=== PATIENT | female | born 1995 | race Caucasian/White ===

== ENCOUNTER 2018-09-29 16:16 | Outpatient (REF) | payer BC, SELFPAY ==
--- NOTE | 2018-09-29 15:50 | PAPFT_PTH ---
PATIENT: Donya López LOC: [facility] U#:[id number] AGE/SX: 23/F ROOM: RE09/29/[address]: Sharri Edwards : 1995 BED: DIS: 09/29/2018 SPEC #: [id number] RECD: 10/02/18 12:58 STATUS: MARIA DEL CARMEN REBeulah #: [id number] ANGELINA: 09/29/18 15:[address]: Sharri Edwards DEPT: [facility] Cytology RECD BY: Shaye Molina Tissues: 1 - CX/ENDOCX FOR PAP SMEARS Procedures: PAP THIN PREP/[facility] Screening Comments: [id number]
== END 2018-09-29 16:36 ==
LOC: NCHCN 16:16
PROVIDERS: PCP Nurse Practitioner Family; Visit Provider Nurse Practitioner Family
DX: Z00.00 Encounter for general adult medical examination without abnormal findings (principal); Z12.4 Encounter for screening for malignant neoplasm of cervix
CPT/HCPCS: 88142

== ENCOUNTER 2019-02-14 18:15 | Emergency (ER) | payer BC, SELFPAY ==
[2019-02-14 18:31] VITALS: BP 145/88; PULSE 117; RESP 20; TEMP 37.3; O2SAT 97
--- NOTE | 2019-02-14 18:41 | W.ED.GENAD ---
Discharge Plan Disposition Patient Disposition: HOME Condition: Stable Discharge Details Chief Complaint: GenMedical Clinical Impression: Periorbital cellulitis of left eye Primary Care Provider: Sharri Edwards ED Provider: Leeroy López Home Meds and New Rx's Prescriptions: New amoxicillin-pot clavulanate 875-125 mg tablet 1 tab PO BID 10 Days Qty: 20 RF: 0 Discharge Instructions Instructions: Cellulitis (ED) Additional Instructions: Continue the antibiotic ointment as previously prescribed. Take Augmentin as prescribed. Return if you develop pain with movement of the eye, persistent high fevers, or any other acute concerns. May use Tylenol and/or ibuprofen as needed for pain Medical Decision Making 23-year-old female presents with 3 days of left eye conjunctivitis which has been improving with the use of erythromycin ointment. She now has sinus pain and pressure with drainage and mild left preauricular lymphadenopathy. Consistent with a developing sinusitis/periorbital cellulitis. Do not appreciate that there are post septal findings and no evidence of retro-orbital cellulitis. We will place her on a course of Augmentin. She understands homecare as well as return precautions. She is stable at this time HPI General Mode of arrival: ambulatory. Date/Time Provider Initiated Documentation: 02/14/19 18:27. Limitations to Documentation: no limitations. History of Present Illness 23 year old F presents to the emergency department with the chief complaint of Left eye conjunctivitis and left sinus pressure, described as moderate, Quality is described as dull, and is localized to the face, eyes and left. Patient reports no radiation. Patient started experiencing this day(s) and it has been intermittent. No relieving factors improve symptom(s), No exacerbating factors reported . Patient notes fever/chills and other (No pain with movement of the eye. Left sinus pressure. Low-grade fever at home). Patient did receive the following treatments prior to arrival, none Related Data Home Medications Medication Instructions Recorded Confirmed amoxicillin-pot clavulanate 1 tab PO BID 10 Days #20 tab 02/14/19 Previous Rx's Medication Instructions Recorded amoxicillin-pot clavulanate 1 tab PO BID 10 Days #20 tab 02/14/19 Allergies Allergy/AdvReac Type Severity Reaction Status Date / Time No Known Allergies Allergy Unverified 02/14/19 18:34 General Stated Complaint: GenMedical DMITRY: 3 Review of Systems Review of Systems No pain with eye movement, no change to vision, no headache, no fall. 8 systems reviewed and otherwise negative [facility] Social History Smoking/Tobacco Use Status: Never Do you feel safe at home: Yes Exam Narrative Exam Narrative: GEN: awake, alert, oriented 3. Pleasant, well groomed, interactive. HEAD: Normocephalic, atraumatic ENT: Mucous membranes moist, oropharynx unremarkable, External ear exam unremarkable, TMs clear bilaterally EYES: PERRL, EOMI, left conjunctival injection, crusting of the lid. Left preauricular lymphadenopathy NECK: Full ROM, no IZABELLA, no menigismus CHEST/RESP: Nontender, clear to auscultation bilateral, no wheeze/rhonchi/rales CARDIOVASCULAR: RRR, no murmur, rub estelle. 2+ Rad pulse bilateral EXT: Full ROM, no edema, no rash Neuro: Grossly normal neurologic exam, conversant, interactive. Psych: Speech fluent, thoughts congruent, affect normal Course Vital Signs Temperature 37.3 C 02/14/19 18:31 Pulse 117 H 02/14/19 18:31 Respiratory Rate 20 02/14/19 18:31 Blood Pressure 145/88 H 02/14/19 18:31 Pulse Oximetry 97 02/14/19 18:31 Temperature 37.3 C 02/14/19 18:31 Temperature Source Skin 02/14/19 18:31 Pulse 117 H 02/14/19 18:31 Respiratory Rate 20 02/14/19 18:31 Respiratory Effort Non-Labored 02/14/19 18:36 Blood Pressure 145/88 H 02/14/19 18:31 Pulse Oximetry 97 02/14/19 18:31 Oxygen Delivery Method Room Air 02/14/19 18:31 Oxygen Flow Rate 0 02/14/19 18:31 Pain Level 3 02/14/19 18:31
--- NOTE | 2019-02-14 18:44 | ED.GENADUL_ITS ---
Discharge Plan Disposition Patient Disposition: HOME Condition: Stable Discharge Details Chief Complaint: GenMedical Clinical Impression: Periorbital cellulitis of left eye Primary Care Provider: Sharri Edwards ED Provider: Leeroy López Home Meds and New Rx's Prescriptions: New amoxicillin-pot clavulanate 875-125 mg tablet 1 tab PO BID 10 Days Qty: 20 RF: 0 Discharge Instructions Instructions: Cellulitis (ED) Additional Instructions: Continue the antibiotic ointment as previously prescribed. Take Augmentin as prescribed. Return if you develop pain with movement of the eye, persistent high fevers, or any other acute concerns. May use Tylenol and/or ibuprofen as needed for pain Medical Decision Making 23-year-old female presents with 3 days of left eye conjunctivitis which has been improving with the use of erythromycin ointment. She now has sinus pain and pressure with drainage and mild left preauricular lymphadenopathy. Consistent with a developing sinusitis/periorbital cellulitis. Do not appreciate that there are post septal findings and no evidence of retro-orbital cellulitis. We will place her on a course of Augmentin. She understands homecare as well as return precautions. She is stable at this time HPI General Mode of arrival: ambulatory . Date/Time Provider Initiated Documentation: 02/14/19 18:27 . Limitations to Documentation: no limitations . History of Present Illness 23 year old F presents to the emergency department with the chief complaint of Left eye conjunctivitis and left sinus pressure, described as moderate, Quality is described as dull, and is localized to the face, eyes and left. Patient reports no radiation. Patient started experiencing this day(s) and it has been intermittent. No relieving factors improve symptom(s), No exacerbating factors reported . Patient notes fever/chills and other (No pain with movement of the eye. Left sinus pressure. Low-grade fever at home). Patient did receive the following treatments prior to arrival, none Related Data Home Medications Medication Instructions Recorded Confirmed amoxicillin-pot clavulanate 1 tab PO BID 10 Days #20 tab 02/14/19 Previous Rx's Medication Instructions Recorded amoxicillin-pot clavulanate 1 tab PO BID 10 Days #20 tab 02/14/19 Allergies Allergy/AdvReac Type Severity Reaction Status Date / Time No Known Allergies Allergy Unverified 02/14/19 18:34 General Stated Complaint: GenMedical DMITRY: 3 Review of Systems Review of Systems No pain with eye movement, no change to vision, no headache, no fall. 8 systems reviewed and otherwise negative [facility] Social History Smoking/Tobacco Use Status: Never Do you feel safe at home: Yes Exam Narrative Exam Narrative: GEN: awake, alert, oriented 3. Pleasant, well groomed, interactive. HEAD: Normocephalic, atraumatic ENT: Mucous membranes moist, oropharynx unremarkable, External ear exam unremarkable, TMs clear bilaterally EYES: PERRL, EOMI, left conjunctival injection, crusting of the lid. Left preauricular lymphadenopathy NECK: Full ROM, no IZABELLA, no menigismus CHEST/RESP: Nontender, clear to auscultation bilateral, no wheeze/rhonchi/rales CARDIOVASCULAR: RRR, no murmur, rub estelle. 2+ Rad pulse bilateral EXT: Full ROM, no edema, no rash Neuro: Grossly normal neurologic exam, conversant, interactive. Psych: Speech fluent, thoughts congruent, affect normal Course Vital Signs Temperature 37.3 C 02/14/19 18:31 Pulse 117 H 02/14/19 18:31 Respiratory Rate 20 02/14/19 18:31 Blood Pressure 145/88 H 02/14/19 18:31 Pulse Oximetry 97 02/14/19 18:31 Temperature 37.3 C 02/14/19 18:31 Temperature Source Skin 02/14/19 18:31 Pulse 117 H 02/14/19 18:31 Respiratory Rate 20 02/14/19 18:31 Respiratory Effort Non-Labored 02/14/19 18:36 Blood Pressure 145/88 H 02/14/19 18:31 Pulse Oximetry 97 02/14/19 18:31 Oxygen Delivery Method Room Air 02/14/19 18:31 Oxygen Flow Rate 0 02/14/19 18:31 Pain Level 3 02/14/19 18:31
[2019-02-14] MEDS: Acetaminophen 500 MG TAB 1000 MG PO (18:46)
[2019-02-14] MEDS: Amoxicillin 875/Clav. 125 TAB PO (18:46)
== END 2019-02-14 18:53 | disposition home or self-care (01) ==
PROVIDERS: Emergency Provider Emergency Medicine; PCP Nurse Practitioner Family
DX: L03.213 Periorbital cellulitis (principal); J01.90 Acute sinusitis, unspecified
CPT/HCPCS: 99283

== ENCOUNTER 2020-07-29 16:40 | Outpatient (REF) | payer BC, SELFPAY | END 2020-07-29 17:00 | LOC: NCHCN 16:40 | PROVIDERS: PCP Nurse Practitioner Family; Visit Provider Nurse Practitioner Family | DX: R30.0 Dysuria (principal) | CPT/HCPCS: 87086 ==

== ENCOUNTER 2020-09-29 18:34 | Outpatient (REF) | payer BC, SELFPAY ==
[2020-09-29 18:32] LABS: Hemoglobin A1C 5.5 % (<5.7)
[2020-09-29 18:35] LABS: Calculated LDL 126 mg/dL (<100); Cholesterol 188 mg/dL (<200); HDL Cholesterol 40 mg/dL (40-60); TSH (W/Ref FT4) 3.31 uIU/mL (0.36-3.74); Triglyceride 112 mg/dL (<150)
[2020-09-30 17:54] LABS: Prolactin 9.1 ng/mL (See Table)
[2020-10-03 16:34] LABS: Dehydroepiandrosterone (DHEA) 4.4 ng/mL (<13)
== END 2020-09-29 18:54 ==
LOC: NCHCN 18:34
PROVIDERS: PCP Nurse Practitioner Family; Visit Provider Nurse Practitioner Family
DX: N91.1 Secondary amenorrhea (principal)
CPT/HCPCS: 80061; 82626; 83036; 84146; 84443

== ENCOUNTER 2021-09-25 03:46 | Outpatient (CLI) | payer BC, SELFPAY ==
[2021-09-27 17:17] LABS: Estradiol 47 pg/mL (See Note)
[2021-09-28 09:42] LABS: FSH 8.9 mIU/mL (See Note); LH 10.2 mIU/mL (See Note)
[2021-09-29 14:03] LABS: Antimullerian Hormone 2.8 ng/mL (0.89-9.9)
== END 2021-09-25 03:47 | disposition home or self-care (01) ==
LOC: LBO 03:46
PROVIDERS: PCP Nurse Practitioner Family; Visit Provider Obstetrics & Gynecology Gynecology
DX: N91.1 Secondary amenorrhea (principal); N92.6 Irregular menstruation, unspecified
CPT/HCPCS: 36415; 82670; 83001; 83002; 83520

== ENCOUNTER 2021-09-30 03:12 | Outpatient (CLI) | payer BC, SELFPAY ==
[2021-10-01 18:06] LABS: Estradiol 85 pg/mL (See Note)
[2021-10-01 18:47] LABS: LH 9.6 mIU/mL (See Note)
[2021-10-01 18:50] LABS: FSH 6.5 mIU/mL (See Note)
== END 2021-09-30 03:13 | disposition home or self-care (01) ==
LOC: LBO 03:12
PROVIDERS: PCP Nurse Practitioner Family; Visit Provider Obstetrics & Gynecology Gynecology
DX: N91.1 Secondary amenorrhea (principal); N92.6 Irregular menstruation, unspecified
CPT/HCPCS: 36415; 82670; 83001; 83002; 83520

== ENCOUNTER 2021-11-17 17:16 | Outpatient (REF) | payer BC, SELFPAY ==
--- NOTE | 2021-11-17 14:45 | PAPFT_PTH ---
PATIENT: Donya López LOC: [facility] U#:[id number] AGE/SX: 26/F ROOM: RE11/17/[address]: Sharri Edwards : 1995 BED: DIS: 11/17/2021 SPEC #: [id number] RECD: 11/17/21 18:10 STATUS: MARIA DEL CARMEN REQ #: [id number] ANGELINA: 11/17/21 14:[address]: Sharri Edwards DEPT: [facility] Cytology RECD BY: Shaye Molina Tissues: 1 - CX/ENDOCX FOR PAP SMEARS Procedures: PAP THIN PREP/[facility] Screening Comments: [id number]
== END 2021-11-17 17:17 | disposition home or self-care (01) ==
LOC: NCHCN 17:16
PROVIDERS: PCP Nurse Practitioner Family; Visit Provider Nurse Practitioner Family
DX: Z12.4 Encounter for screening for malignant neoplasm of cervix (principal)
CPT/HCPCS: 88142

== ENCOUNTER 2023-02-11 08:11 | Outpatient (CLI) | payer BC, SELFPAY ==
--- NOTE | 2023-02-11 16:03 | DI.RAD_ITS ---
Exam(s) XR KNEE RT 3V AP,LAT,MEETA EXAM: XR KNEE RT 3V AP,LAT,MEETA CLINICAL HISTORY: RT KNEE EFFUSION,M25.461. TECHNIQUE: 2D digital imaging was performed. COMPARISON: No exams were available for comparison FINDINGS: 3 views No evidence of acute fracture nor obvious joint effusion. Bone density normal. No osseous lesions. No degenerative changes. No osteochondral defects seen. IMPRESSION: No acute osseous findings. DATA REPOSITORY: RADIATION DOSE DELIVERED:
== END 2023-02-11 08:31 ==
PROVIDERS: PCP Nurse Practitioner Family; Visit Provider Specialist/Technologist Athletic Trainer
DX: M25.461 Effusion, right knee (principal)
CPT/HCPCS: 73562

== ENCOUNTER 2023-02-11 16:13 | Outpatient (REF) | payer BC, SELFPAY ==
[2023-02-14 10:52] LABS: Lyme Ab w Rflx to Lyme Confirm Negative (Negative)
== END 2023-02-11 16:14 | disposition home or self-care (01) ==
LOC: LBN 16:13
PROVIDERS: PCP Nurse Practitioner Family; Visit Provider Specialist/Technologist Athletic Trainer
DX: M25.461 Effusion, right knee (principal)
CPT/HCPCS: 36415; 86618

== ENCOUNTER → 2023-11-01 02:46 | Outpatient (CLI) | payer BC, SELFPAY ==
--- NOTE | 2023-11-01 13:45 | DI.US_ITS ---
Exam(s) MG MAMMO DIAGNOSTIC BI US BREAST LT LIMITED EXAM: MAMMO DIAGNOSTIC BI and U/S breast LT limited CLINICAL HISTORY: DIAGNOSTIC, LT BREAST LUMP, N63.21,FAMILY H/O BREAST CA. TECHNIQUE: Craniocaudal and mediolateral oblique Full Field Digital Mammography views with Computer Aided Diagnosis followed by Tomosynthesis and left breast ultrasound. COMPARISON: This is a baseline examination. FINDINGS: Mammography/Tomosynthesis: Masses/Architectural Distortion: None seen. Microcalcifictions: No suspicious pleomorphic-type are seen. Skin Thickening/Nipple Retraction: None. Limited left breast US: Echotexture: Normal appearance of the glandular tissue. Shadowing: No suspicious foci. Cyst: None. Solid lesions: None seen. Ductal dilation: None. IMPRESSION: 1. No evidence of malignancy is noted. 2. Unless there is more urgent need, follow-up screening mammography is recommended, as per [place] [employer] guidelines and based on the patient's age. 3. The findings were discussed with the patient on the date of the examination. BI-RADS Category 1 - Negative Breast Density - Category B - Scattered areas of fibroglandular density Breast density Category C or D implies that the patient has dense breast tissue. Dense breast tissue can make it harder to find cancer on a mammogram. Dense breast tissue is also associated with an incr eased risk of breast cancer. This information about the result of the mammogram report was provided to the patient to raise their awareness. Use this report when you speak with the patient about their risks for breast cancer, which includes their family history. At that time, you may recommend additional screening tests (Ultrasoun d or MRI) as these tests may add significant information. A negative radiographic report should not delay biopsy if a dominant or clinically suspicious mass is present. Up to ten percent of cancers are not identified on mammography. A negative report may reinforce clinical impression. Adenosis and dense breasts may obscure an underlying neoplasm. False positive reports average 6 to 10%. Patient will receive a letter notifying them of these results.
== END ==
PROVIDERS: PCP Nurse Practitioner Family; Visit Provider Nurse Practitioner Family
DX: Z12.31 Encounter for screening mammogram for malignant neoplasm of breast (principal); R92.8 Other abnormal and inconclusive findings on diagnostic imaging of breast
CPT/HCPCS: 76642; 77062; 77066; G0279